=== PATIENT | male | born 1995 | race African-American/Black ===

== ENCOUNTER 2023-04-15 12:31 | Outpatient (AMB) | payer OTHER, SELFPAY ==
--- NOTE | 2023-04-15 12:35 | MHC.OFFVIS ---
Intake Vital Signs 04/15/23 12:37 Height 6 ft Weight 271 lb 2.697 oz BMI 36.8 BP 118/72 Blood Pressure Location Lt brachial Position Sitting Pulse 66 Intake Visit Reasons: New patient/Per Dr. Bo Intake Note: New patient evaluation for family history HOCM [employer] Line Worker Required: No Miniature Set Designer: Miniature Set Designer Present Accompanied by: Mother Allergies No Known Allergies Allergy (Verified 04/15/23 12:39) Medication List - Last Reconciled 04/15/23 by Delon Bo MD No Known Home Meds HPI HPI Comments History of Present Illness Details Pleasant 27-year-old gentleman who is here for family history of hypertrophic cardiomyopathy. His mother is anesthesiologist at [employer], [place]. His grandfather was diagnosed with hypertrophic obstructive cardiomyopathy while in [place]. He was 40 years old at that time. By his mother's report, his grandfather did not have any ventricular tachycardia or cardiac arrest and was never considered for ICD. He from prostate cancer in 2018 while he was in [facility]. 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 He played football while he was in high school and never had any syncopal episodes. He exercises once a week and does weight training. During exercise he has no symptoms. In particular no chest pain, shortness of breath or syncope/dizziness. No palpitations. Overall clinically stable and has no symptoms to report. FORMERLY [facility], 1928–1983 Surgical History (Updated 04/15/23 @ 12:40 by EDUIN Laura) Hx of tonsillectomy Family History (Updated 04/15/23 @ 12:41 by EDUIN Laura) Father No problems noted. Mother No problems noted. Maternal Grandfather HOCM (hypertrophic obstructive cardiomyopathy) Social History (Updated 04/15/23 @ 12:41 by EDUIN Laura) Patient Tobacco Use Status: Never used Tobacco Review of Systems Const Denies chills, Denies daytime sleepiness, Denies fatigue, Denies fever(s), Denies frequent falls, Denies poor appetite, Denies snoring, Denies stops breathing during sleep, Denies weakness, Denies weight gain and Denies weight loss Eyes Denies loss of vision ENT Denies dizziness and Denies hearing loss Card Denies chest pain, Denies claudication, Denies leg edema, Denies lightheadedness, Denies palpitations, Denies dyspnea, Denies dyspnea on exertion and Denies orthopnea Resp Denies cough, Denies excessive phlegm production, Denies dyspnea, Denies dyspnea on exertion, Denies snoring and Denies wheezing GI Denies abdominal pain, Denies hematochezia, Denies change in bowel habits, Denies nausea and Denies vomiting Denies dysuria and Denies urinary frequency Musc Denies arthralgias, Denies muscle weakness, Denies numbness and Denies other (frequent falls) Skin/Breast Denies nail changes and Denies rash Neuro Denies Abnormal speech present, Denies dizziness, Denies frequent falls, Denies loss of vision, Denies memory loss, Denies numbness and Denies weakness Psych Denies depression and Denies memory loss Endo Denies fatigue and Denies palpitations Matthew/Lymph Reports easy bruising and Reports other (anemia) Aller/Immun Denies wheezing Physical Exam Vital Signs: Last Vital Signs Pulse 66 04/15/23 12:37 BP 118/72 04/15/23 12:37 BMI result Body Mass Index 36.8 GENERAL APPEARANCE: in no acute distress, pleasant. NECK: no carotid bruit, no jugular venous distention. SKIN: no suspicious lesions, warm and dry. HEART: no murmurs, regular rate and rhythm. LUNGS: clear to auscultation bilaterally. ABDOMEN: soft, nontender. EXTREMITIES: no edema. PERIPHERAL PULSES: equal. NEUROLOGIC: No gross deficits, AAO X 3 Neuro Speech: No Abnormal speech present Office Procedures EKG Details: Sinus rhythm 66 beats per minute, normal axis, nonspecific T-wave changes, QTC 417 milliseconds. [id number], Complete Assessment & Plan Assessment & Plan (1) Family history of hypertrophic cardiomyopathy: Code(s): Z82.49 - Family history of ischemic heart disease and other diseases of the circulatory system Plan Very pleasant 87-year-old gentleman who is here for family history of hypertrophic cardiomyopathy with his history of hypertrophic cardiomyopathy in his maternal grandfather when he was in [place]. No high-risk features. He has been doing well and is active without any symptoms. EKG is not showing left ventricular hypertrophy. We will get a baseline echocardiogram to assess for any structural heart issues and I am hopeful that his echocardiogram will be normal. He will be returning to [place] tomorrow and if echocardiography had any issues then he will need to see Cardiology there which we can look into. Thank you for allowing me to participate in the care of your patient. Please feel free to contact me if you have any questions. Orders: Orders CA echo transthoracic complete Today Z82.49 - Family history of ischemic heart disease and other diseases of the circulatory system Coding Level of Care Code Procedure Only Diagnoses Family history of hypertrophic cardiomyopathy Z82.49 CPT Codes EKG - CPT: 81371-[id number], Complete ([id number])
[2023-04-15 12:37] VITALS: BP 118/72; PULSE 66; BMI 36.8
== END 2023-04-15 13:03 | disposition home or self-care (01) ==
PROVIDERS: Visit Provider Internal Medicine Cardiovascular Disease
DX: R94.31 Abnormal electrocardiogram [ECG] [EKG] (principal); Z82.49 Family history of ischemic heart disease and other diseases of the circulatory system
CPT/HCPCS: 93010; 93306; 99203

== ENCOUNTER → 2023-04-15 12:31 | Outpatient (BNVA) | payer OTHER, SELFPAY | PROVIDERS: Visit Provider Internal Medicine Cardiovascular Disease | DX: Z91.89 Other specified personal risk factors, not elsewhere classified (principal); Z82.49 Family history of ischemic heart disease and other diseases of the circulatory system | CPT/HCPCS: 93005 ==

== ENCOUNTER → 2023-04-15 13:27 | Outpatient (REF) | payer OTHER, SELFPAY ==
--- NOTE | 2023-04-15 14:05 | CA_ITS ---
Transthoracic Echocardiogram Patient (Last, First, Middle): Yeni Funes, Gender: Male Date of : 1995 Age: 27 Procedure Date: 04/15/2023 Procedure Type: Transthoracic Echocardiogram Location: OP Height: 182.88 cm Weight: 124. kg BSA: 2.43 m2 Heart Rate: bpm BP: 126 / 70 mmHg College Associate: CIERRA Referring MD: Delon Bo MD Ship Cleaner: Delon Bo MD Symptoms: Z82.49 - Family history of ischemic heart disease and other diseases of ... Study Quality: Adequate Conclusions: - Normal left ventricular size and systolic function. The visually estimated ejection fraction is between 60-65%. Diastolic function is normal for age. LV wall thickness at upper limit of normal. - Mildly increased right ventricular cavity size. There is normal right ventricular systolic function. - There is no evidence of pericardial effusion. Findings Left Ventricle Normal left ventricular size and systolic function. The visually estimated ejection fraction is between 60-65%. Diastolic function is normal for age. Right Ventricle Mildly increased right ventricular cavity size. There is normal right ventricular systolic function. Atria The left atrium is normal in size. The right atrium is normal in size. Aortic Valve Normal aortic valve structure and function. There is no aortic valve stenosis. There is no aortic valve regurgitation. Mitral Valve The mitral valve appears normal. There is no mitral valve regurgitation. There is no mitral valve stenosis. Pulmonic Valve Normal pulmonic valve structure and function. There is no pulmonic valve regurgitation. Tricuspid Valve Normal tricuspid valve structure. There is trace tricuspid valve regurgitation. Tricuspid regurgitation envelope is inadequate for calculation of right ventricular systolic pressure. Normal right atrial pressure. Great Vessels All visible segments of the aorta are normal in size. The visualized portions of the pulmonary artery and branches are normal. Venous The inferior vena cava is normal in size and collapses greater than 50% with inspiration. Pericardium/Pleural There is no evidence of pericardial effusion. Prior Study Comparison No prior study available for comparison. Measurements 2D Linear Measurements IVSd: 1.15 0.6-0.9/0.6-1.0 cm LVIDd: 4.83 3.9-5.3/4.2-5.9 cm LVIDd Index: 1.99 2.4-3.2/2.2-3.1 cm/m2 LVIDs: 3.28 2.0-3.6 cm LVPWd: 1.08 0.7-1.1 cm LA Diam: 3.30 2.7-3.8/3.0-4.0 cm LAIDs Index: 1.36 1.5-2.3 cm/m2 LV Mass: 248.79 67-162/88-224 g LV Mass Index: 102.38 43-95/49-115 g/m2 LVOT Diam: 2.30 3.0+(-)1.3 cm 2D Systolic Function EF 4C: 65.90 >55% EF 2C: 68.00 >55% EF BiP: 67.60 >55% Mitral Valve MV Pk E: 0.88 MV PK A: 0.53 MV Decel Time: 226.00 E/A: 1.70 E'Lateral: 12.60 E'Medial: 7.51 E/E' Med: 11.70 E/E' Lat: 7.00 PHT: 66.00 MVA PHT: 3.33 Decel [place]: 3.89 Aortic Valve AoV Pk Luiz: 1.42 AoV Mn Luiz: 0.93 AoV VTI: 0.35 AoV Pk Grad: 8.00 Aov Mn Grad: 4.00 SHAWN Cont.VTI: 3.07 LVOT LVOT Pk Luiz: 1.13 LVOT Mn Luiz: 0.77 LVOT VTI: 0.26 LVOT Pk Grad: 5.00 LVOT Mn Grad: 3.00 LVOT Diam: 2.30 LVOT Area: 4.15 Diastolic Function MV Pk E: 0.88 MV Pk A: 0.53 E/A: 1.70 E'Medial: 7.51 E/E' Med: 11.70 E' Laterial: 12.60 E/E' Lat: 7.00 Right Ventricle TAPSE (mm): 27.20 TVS' Luiz: 11.50 Tricuspid Valve RA Press: 3.00 Great Vessels Aorta Sinus of Valsalva: 3.13 2.0-3.5 cm Ao Asc: 2.60 2.1-3.4 cm Ao Arch: 2.20 Updated in Other Vendor System with Status of Final Delon Bo MD electronically signed on 04/15/2023 10:13:13 PM with status of Final
== END ==
LOC: HO.CARD 13:27
PROVIDERS: Visit Provider Internal Medicine Cardiovascular Disease
DX: Z13.6 Encounter for screening for cardiovascular disorders (principal); Z82.49 Family history of ischemic heart disease and other diseases of the circulatory system
CPT/HCPCS: 93306